=== PATIENT | male | born 1990 | race Native Hawaiian/Other Pacific Islander ===

== ENCOUNTER 2018-04-19 12:14 | Emergency (ER) | payer OTHER ==
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
[2018-04-19 14:35] VITALS: BP 126/78; PULSE 86; RESP 18; TEMP 98
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
[2018-04-19 15:37] VITALS: O2SAT 99
== END 2018-04-19 14:49 | disposition home or self-care (01) ==
LOC: C.ER 12:14
DX: S52.122A Displaced fracture of head of left radius, initial encounter for closed fracture (principal); V03.10XA Pedestrian on foot injured in collision with car, pick-up truck or van in traffic accident, initial encounter; Y92.410 Unspecified street and highway as the place of occurrence of the external cause